=== PATIENT | female | born 1945 | race Caucasian/White ===

== ENCOUNTER 2022-05-14 00:33 | Emergency (ER) | payer MEDICARE, BC ==
[~2022-05-14] VITALS: Ht 167.6 cm; Wt 68.9 kg
[2022-05-14 00:40] VITALS: BP 122/64
--- NOTE | 2022-05-14 01:13 | NUR ---
PATIENT WILLIEAMAURI FROM [facility] C/O GLF AROUND 2000HRS. PATIENT NOTED WITH REDNESS ABOVE LEFT EYEBROW. PATIENT A/O X 1, RR EVEN, NO SOB NOTED. PATIENT TAKEN TO ER BED 13
--- NOTE | 2022-05-14 02:32 | NUR ---
called [facility] and gave report to ana
--- NOTE | 2022-05-14 02:34 | NUR ---
apa eta: 60 min
--- NOTE | 2022-05-14 03:55 | NUR ---
PT WAS TRANSFERRED BACK TO [place] IN STABLE CONDITION VIA GURNEY BY [facility]
== END 2022-05-14 03:59 | disposition home or self-care (01) ==
LOC: ER 00:35
DX: S00.83XA Contusion of other part of head, initial encounter (principal); F20.9 Schizophrenia, unspecified; W18.30XA Fall on same level, unspecified, initial encounter; Y93.89 Activity, other specified; Y92.89 Other specified places as the place of occurrence of the external cause; Y99.8 Other external cause status
CPT/HCPCS: 70450-TC; 72125-TC

== ENCOUNTER 2022-11-06 20:42 | Emergency (ER) | payer MEDICARE, BC, OTHER ==
[~2022-11-06] VITALS: Ht 167.6 cm; Wt 70.3 kg
[2022-11-06 21:30] LABS: BASOPHILS # (AUTO) 0.1 K/uL (0.0-0.2); BASOPHILS % (AUTO) 0.8 % (0.0-2.0); EOSINOPHILS % (AUTO) 0.3 % (0.0-6.0); HEMATOCRIT 36 % (33-45); HEMOGLOBIN 11.8 g/dL (11.5-14.8); LYMPHOCYTES # (AUTO) 1.2 K/uL (0.8-4.8); LYMPHOCYTES % (AUTO) 13.3 % (20.0-44.0); MEAN CORPUSCULAR HGB CONC 33 g/dl (31.0-36.0); MEAN CORPUSCULAR VOLUME 89 fL (82-100); MONOCYTES # (AUTO) 1.1 K/uL (0.1-1.30); MONOCYTES % (AUTO) 12.1 % (2.0-12.0); NEUTROPHILS # (AUTO) 6.6 K/uL (1.8-8.9); NEUTROPHILS % (AUTO) 73.5 % (43.0-81.0); PLATELET COUNT (AUTO) 334 K/uL (150-450); RED BLOOD CELL COUNT(AUTO) 4.03 MIL/uL (4.0-5.2)
[2022-11-06 22:09] LABS: ALANINE AMINOTRANSFERASE 26 U/L (12-78); ALBUMIN 3.7 g/dL (3.4-5.0); ALKALINE PHOSPHATASE 106 U/L (46-116); ASPARTATE AMINOTRANSFERASE 17 U/L (15-37); BILIRUBIN,DIRECT 0.1 mg/dL (0.0-0.2); BILIRUBIN,TOTAL 0.4 mg/dL (0.2-1.0); CALCIUM, SERUM 8.7 mg/dL (8.5-10.1); CARBON DIOXIDE 26 mmol/L (21-32); CHLORIDE 105 mmol/L (98-107); CREATININE 0.9 mg/dL (0.6-1.3); GLUCOSE 70 mg/dL (74-106); POTASSIUM 3.6 mmol/L (3.5-5.1); SODIUM SERUM 140 mmol/L (136-145); TOTAL PROTEIN, SERUM 6.6 g/dL (6.4-8.2); UREA NITROGEN, BLOOD 20 mg/dL (7-18)
[2022-11-06 22:12] LABS: ACETAMINOPHEN 0 ug/ml (10-30)
[2022-11-06 22:13] LABS: ALCOHOL, BLOOD < 3 mg/dL (0-0)
[2022-11-06 22:40] LABS: BILIRUBIN,URINE NEGATIVE (NEGATIVE); COLOR,URINE YELLOW (YELLOW); LEUKOCYTE ESTERASE ,URINE NEGATIVE (NEGATIVE); NITRITE, URINE POSITIVE (NEGATIVE); PROTEIN,URINE NEGATIVE (NEGATIVE); UGLUCOSE NEGATIVE (NEGATIVE); UROBILINOGEN,URINE 0.2 EU/dL (0.2)
[2022-11-06 23:11] LABS: BACTERIA,URINE Many /HPF (None Seen); CALCIUM OXALATE CRYSTALS,UR Rare /HPF (None Seen); SQUAMOUS EPITHELIAL CELL,UR Rare /HPF (None Seen)
[2022-11-06] MEDS ORDERED: CEFTRIAXONE 1GM BAG (ER ONLY) 1 GM/50 ML PIGGYBACK IV ONE (23:30)
[2022-11-07] VITALS: BP 137/88
[2022-11-07] MEDS ORDERED: CEFTRIAXONE 1 G VIAL ONE (00:05)
== END 2022-11-07 02:14 ==
LOC: ER 20:44
DX: N39.0 Urinary tract infection, site not specified (principal); F23 Brief psychotic disorder; Z20.822 Contact with and (suspected) exposure to COVID-19; F20.9 Schizophrenia, unspecified
CPT/HCPCS: 99283; 96372; 85025; 80048; 87086; 80076; 81001; 36415; 87426; 80143; 80320; 80307; J0696; C9803; G0480